=== PATIENT | male | born 1990 | race African-American/Black ===

== ENCOUNTER 2018-12-27 21:32 | Emergency (ER) | payer SELFPAY ==
[~2018-12-27] VITALS: Ht 182.9 cm; Wt 83.9 kg
[2018-12-27 22:35] LABS: Basophils # (auto) 0.1 uL; Basophils % (auto) 0.5 % (0.0-2.0); Eosinophils # (auto) 0 uL; Eosinophils % (auto) 0.4 % (0.0-7.0); Hematocrit 45.6 % (41.0-53.0); Hemoglobin 15.7 g/dL (13.5-17.5); Lymphocytes # (auto) 1.1 uL; Mean Corpuscular Hemoglobin 28.1 pg (28.0-32.0); Mean Corpuscular Hgb Conc. 34.5 g/dL (32.0-36.0); Mean Corpuscular Volume 81.6 fL (80.0-100.0); Monocytes # (auto) 0.5 uL; Monocytes % (auto) 4.7 % (0.0-12.0); Neutrophils # (auto) 9.4 uL; Neutrophils % (auto) 84.4 % (37.0-80.0); Platelet Count (auto) 258 10^3/uL (140-450); Red Blood Cells 5.59 10^6/uL (4.5-5.90); Red Cell Distribution Width 13.1 % (11.8-14.3); White Blood Cell 11.1 10^3/uL (4.4-10.8)
[2018-12-27] MEDS ORDERED: SODIUM CHLORIDE 0.9% 250 ML IV ONE (22:45)
[2018-12-27] MEDS ORDERED: ONDANSETRON HCL 4 MG/2 ML VIAL IV ONE (22:45)
[2018-12-27 22:53] LABS: INR 1.04 (0.9-1.15); Partial Thromboplastin Time 23.6 sec (23.64-32.05)
[2018-12-27 22:56] LABS: Albumin 4.7 g/dL (3.4-5.0); BUN/Creatinine Ratio 12.8; Calcium 9.9 mg/dL (8.5-10.1); Potassium 3.6 mmol/L (3.5-5.1)
[2018-12-27 23:00] LABS: Bilirubin, Total 1.3 mg/dL (0.2-1.0); Total Protein 8.4 g/dL (6.4-8.2)
[2018-12-28] MEDS ORDERED: fentaNYL CITRATE 100 MCG/2 ML VL IV ONE (00:15)
[2018-12-28] MEDS ORDERED: SODIUM CHLORIDE 0.9% 1,000 ML IV ONE (00:15)
[2018-12-28 00:22] VITALS: BP 114/62
== END 2018-12-28 01:48 | disposition home or self-care (01) ==
LOC: ER 21:37
DX: K59.00 Constipation, unspecified (principal); F12.10 Cannabis abuse, uncomplicated
CPT/HCPCS: 36415; 74176; 80053; 82150; 83690; 83735; 85025; 85610; 85730; 93005; 96361; 96374; 96375; 99284; J2405; J3010; J7030; J7050

== ENCOUNTER 2021-09-07 16:09 | Emergency (ER) | payer SELFPAY ==
[~2021-09-07] VITALS: Ht 182.9 cm; Wt 84.4 kg
[2021-09-07 16:09] VITALS: BP 127/70
== END 2021-09-07 17:20 | disposition left against medical advice (07) ==
LOC: ER 16:09
DX: R11.2 Nausea with vomiting, unspecified (principal); K59.00 Constipation, unspecified; Z53.21 Procedure and treatment not carried out due to patient leaving prior to being seen by health care provider